=== PATIENT | male | born 1990 | race Caucasian/White ===

== ENCOUNTER → 2020-05-06 15:26 | Outpatient (BNVA) | payer SELFPAY | PROVIDERS: Visit Provider Nurse Practitioner | DX: S49.92XA Unspecified injury of left shoulder and upper arm, initial encounter (principal); X58.XXXA Exposure to other specified factors, initial encounter | CPT/HCPCS: 73030 ==

== ENCOUNTER 2024-09-26 07:38 | Emergency (ER) | payer SELFPAY ==
[2024-09-26 07:43] VITALS: BP 143/94; PULSE 90; RESP 24; TEMP 36.8; O2SAT 97
--- NOTE | 2024-09-26 08:00 | PC.NURSE ---
c-collar applied during triage
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
--- NOTE | 2024-09-26 08:17 | CT_ITS ---
WS: [id number] CT CERVICAL SPINE HISTORY: Trauma TECHNIQUE: Contiguous 2.0 mm axial imaging performed through the entire cervical spine. Sagittal and coronal reformats also performed. All CT scans at [facility] use at least one of these dose optimization techniques: automated exposure control; mA and/or kV adjustment per patient size (includes targeted exams where dose is matched to clinical indication); or iterative reconstruction. DLP: 1340.19 mGy.cm COMPARISON: None available. Mild straightening of the normal cervical lordosis. C5 anterolisthesis by 3 mm. Mild disc space narrowing at C5-6 and C6-7. No loss of vertebral body height. Mild asymmetry and very slight subluxation of the C5-6 and C6-7 facet joints. Lateral masses of C1 and C2 are aligned. The odontoid process is intact. Craniocervical junction is normal. C2-C3: Normal. C3-C4: Normal. C4-C5: Mild osteophytic ridging. No disc protrusion. No stenosis. No fracture. C5-C6: Acute LEFT articular facet of C6. The C5 articular facet is invaginating into the fracture. Facet fracture by 3.4 mm. Fracture also extends into the transverse foramina of C6. No right-sided fracture or subluxation. C6-C7: Osteophytic ridging. There is slight elevation of the posterior C7 vertebral body cortex superiorly. This may be an osteophyte cannot exclude more acute injury related to the recent trauma. C7-T1: Normal. Soft tissues are normal. Lung apices are clear. CT/CT cervical spin wo con* [id number] IMPRESSION: 1. Acute minimally displaced LEFT C6 articular facet fracture. The LEFT C5 art icular facet invaginates into the C6 fracture site. 2. LEFT C6 facet fracture extends into the transverse foramen. LEFT vertebral artery injury should be considered. 3. C5 anterolisthesis by 3 mm. 4. Mild facet joint asymmetry and subluxation at C5-6 and C6-7. Suspect inters pinous ligament injury from the trauma. 5. Slight elevation of the posterior cortex of C7. This may be an osteophyte o r cortical injury from the recent trauma. Recommendation: MRI cervical spine, noncontrast recommended to evaluate for lig amentous and soft tissue injury. Notified Bakari Frank DO at 09/26/2024 9:20 AM.
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
[2024-09-26] MEDS: iohexol 350 mg/mL 500 mL Btl (per mL) IV ×3 (08:54→12:19)
[2024-09-26 09:08] LABS: Basophils % 0.2 %; Hematocrit 50.8 % (37-53); Lymphocytes # 1.2 10^3/uL (0.8-4.8); Mean Corpuscular HGB Conc 34.8 g/dL (30-55); Mean Corpuscular Hemoglobin 31.2 pg (27-33); Mean Corpuscular Volume 89.6 fl (82-101); Mean Platelet Volume 9.3 fL (7.4-10.4); Monocytes # 0.9 10^3/uL (0.2-0.9); Monocytes % 5.4 %; Neutrophils # 14.99 10^3/uL (1.8-7.7); Neutrophils % 86.4 %; Nucleated Red Blood Cells % 0 %; Platelet Count 371 10^3/cmm (157-399); Red Blood Count 5.67 10^6/uL (3.85-5.65); Red Cell Distribution Width 12.7 % (12.1-15.1); White Blood Count 17.35 10^3/uL (3.29-11.43)
[2024-09-26 09:22] LABS: Alanine Aminotransferase 35 U/L (0-41); Albumin Level 5.1 g/dL (3.5-5.2); Alcohol Level 151 mg/dL (0-10); Alkaline Phosphatase 75 U/L (40-130); Anion Gap 20.2 (5-19); Aspartate Amino Transferase 36 U/L (0-40); Blood Urea Nitrogen 12 mg/dL (6-20); Calcium 9.7 mg/dL (8.5-10.5); Carbon Dioxide 24 mmol/L (22-29); Chloride 101 mmol/L (98-107); Creatinine Clr Calc Pharmacy 130.9151; Glomerular Filtration Rate 87.2 mL/min (90-130); Glucose 121 mg/dL (65-115); Osmolality Calculated 293 mOsm/kg (285-295); Potassium 4.2 mmol/L (3.5-5.1); Sodium 141 mmol/L (136-145); Total Bilirubin 1.7 mg/dL (0.15-1.2); Total Protein 8.1 g/dL (6.6-8.7)
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
--- NOTE | 2024-09-26 09:47 | PC.NURSE ---
PT taken to [facility] @[id number]
--- NOTE | 2024-09-26 09:50 | MR_ITS ---
WS: [id number] MRI CERVICAL SPINE NONCONTRAST TECHNIQUE: Sagittal T1, T2 and STIR imaging. Axial T2, gradient, and fiesta imaging. CLINICAL INFORMATION: Trauma left C6 fracture COMPARISON: None. FINDINGS: Some images degraded by patient motion Straightening of the normal cervical lordosis. Facet fractures with bony detail better evaluated on the recent CT. Associated soft tissue edema in this location LEFT articulating facet of C5-6 with mild widening. Associated facet effusions at LEFT C5-C6 and C6-C7. Dorsal intraspinous ligamentous injury with edema at C3-C5 worse on the LEFT. No evidence of cord contusion or epidural hematoma. C2-C3: Normal. C3-C4: Mild facet arthropathy. Mild LEFT bony foraminal narrowing. C4-C5: Mild disc osteophyte complex with endplate ridging. Mild facet arthropathy. Mild LEFT bony foraminal narrowing. C5-C6: Disc osteophyte complex with endplate ridging. Moderate LEFT bony foraminal narrowing. Moderate facet arthropathy. C6-C7: Disc osteophyte complex with endplate ridging. Mild RIGHT foraminal narrowing. Spinal canal is patent. C7-T1: Trace edema with mild compression superior endplate C7. Some of this may be degenerative. Mild disc osteophyte complex at this level with dorsal spurring. Spinal canal and foramen are patent. MR/MR cervical spin wo con* [id number] IMPRESSION: 1. Straightening of the normal cervical lordosis. No evidence of cord contusio n or epidural hematoma. 2. LEFT superior articulating facet C6 fracture with mild widening with associ ated soft tissue edema and fluid in this location. Associated mild widening and subluxation. 3. Facet effusions at LEFT C5-C6 and LEFT C6-C7 compatible with ligamentous in jury. Mild subluxation of the LEFT C6-7 articulating facets 4. Dorsal interspinous ligamentous injury at C2-C5 worse on the LEFT with asso ciated soft tissue edema. 5. Trace edema in the superior endplate C7 may be due to small amount of recen t compression versus degenerative. Dorsal osteophytic spurring at this level mo st likely chronic.
[2024-09-26 11:23] LABS: Bilirubin Urine Negative (Negative); Blood Urine Negative (Negative); Glucose Urine UA Negative (Normal); Ketones Urine Trace (Negative); Leukocyte Esterase Urine Negative (Negative); Nitrate Urine Negative (Negative); Protein Urine 1+ (Negative); Urine Appearance Clear (CLEAR); Urine Color Yellow (Yellow); pH Urine 5.5 (5-7)
[2024-09-26 11:34] LABS: Specific Gravity, Urine 1.061 (1.005-1.030)
[2024-09-26 11:35] LABS: Add Urine Microscopic? YES; Bacteria Urine TRACE /hpf; UA Manual Slide Review YES; UA Slide Review UA Slide Review Perf
[2024-09-26 11:44] VITALS: BP 142/94; PULSE 88; O2SAT 90
[2024-09-26] MEDS: tetanus-dipt-pertussis 0.5 mL SDV IM (11:57)
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
[2024-09-26 14:10] VITALS: BP 136/77; PULSE 93; O2SAT 97
[2024-09-26 15:06] VITALS: BP 142/88; PULSE 94; O2SAT 98
== END 2024-09-26 15:12 ==
PROVIDERS: Emergency Provider Family Medicine; PCP Family Medicine Adult Medicine
DX: S12.500A Unspecified displaced fracture of sixth cervical vertebra, initial encounter for closed fracture (principal); S15.102A Unspecified injury of left vertebral artery, initial encounter; R07.2 Precordial pain; F17.290 Nicotine dependence, other tobacco product, uncomplicated; F10.129 Alcohol abuse with intoxication, unspecified; Y90.6 Blood alcohol level of 120-199 mg/100 ml; V89.2XXA Person injured in unspecified motor-vehicle accident, traffic, initial encounter
CPT/HCPCS: 70450; 70496; 70498; 71260; 71275; 72125; 72141; 74177; 80053; 80307; 81001; 85025; 90471; 90715; 99285